=== PATIENT | female | born 1975 | race Caucasian/White ===

== ENCOUNTER 2018-12-26 14:02 | Emergency (ER) | payer BC, MEDICAID ==
[2018-12-26 14:54] LABS: BASO % 0.2 % (0-6); EOS % 1.4 % (0-6); HEMATOCRIT 43.8 % (35.0-47.0); HEMOGLOBIN 14.5 gm/dl (11.6-16.0); LYMPH % 24.2 % (16-45); MEAN CELL VOLUME 91.8 fl (81-97); MEAN CORPUSCULAR HEMOGLOBIN 30.4 pg (27-33); MEAN CORPUSCULAR HGB CONC 33.1 g/dl (32-36); MEAN PLATELET VOLUME 11.5 fl (7.4-10.4); MONO % 8.2 % (0-9); PLATELET COUNT 211 K/uL (130-400); RED BLOOD COUNT 4.77 M/uL (3.80-5.40); WHITE BLOOD COUNT W/O DIFF 9.5 K/uL (4.2-12.2)
[2018-12-26 15:03] LABS: BLOOD UREA NITROGEN 8 mg/dL (6-20); CREATININE 0.7 mg/dL (0.5-0.9); EST GLOMERULAR FILTRATION RATE > 60 mL/min
[2018-12-26 15:06] LABS: GLUCOSE,RANDOM 100 mg/dL (74-109)
[2018-12-26 15:09] LABS: INFLUENZA A NEGATIVE (NEGATIVE); INFLUENZA B NEGATIVE (NEGATIVE)
--- NOTE | 2018-12-26 15:16 | Emergency Department Record ---
History of Present Illness - General Chief Complaint: Cough Stated Complaint: ELPIDIO Time Seen by Provider: 12/26/18 14:20 Source: Patient Mode of Arrival: Ambulatory Limitations: No limitations - History of Present Illness Initial Comments: pt has been sick with bronchitis. she took a zpack and feels no better. she went to an urgent care where they told she has pneumonia and that she needs to go to the nearest emergency department. she has had fevers 101.7 yesterday and productive yellow cough. she has pain w inspiration Complaint: Cough, Fever, Nasal congestion, Rhinorrhea Onset/Timin -: Days(s) Consistency: Constant Worsens With: Deep breaths Associated Symptoms: Chills, Cough, Fever, Nasal congestion, Rhinorrhea, Shortness of breath - Related Data Home Medications Medication Instructions Recorded Confirmed Last Taken Adalimumab [Humira Pen] 400 mg IM ASDIR 12/26/18 12/26/18 Unknown Previous Rx's Medication Instructions Recorded Amoxicillin/Potassium Clav 1 each PO BID #14 tablet 12/26/18 [Augmentin 875Mg/125Mg] Allergies Allergy/AdvReac Type Severity Reaction Status Date / Time Sulfa (Sulfonamide Allergy ANAPHYLAXIS Verified 07/27/16 15:09 Antibiotics) Travel Screening - Travel/Exposure Within Last 30 Days Have you traveled within the last 30 days?: No Review of Systems Reviewed: No additional complaints except as noted below Constitutional: Reports: As per HPI. Denies: Chills, Fever, Malaise, Night sweats, Weakness, Weight change Eyes: Reports: As per HPI. Denies: Eye discharge, Eye pain, Photophobia, Vision change ENT: Reports: As per HPI. Denies: Congestion, Dental pain, Ear pain, Epistaxis , Hearing loss, Throat pain Respiratory: Reports: As per HPI. Denies: Cough, Dyspnea, Hemoptysis, Stridor, Wheezes Cardiovascular: Reports: As per HPI. Denies: Arrhythmia, Chest pain, Dyspnea on exertion, Edema, Murmurs, Orthopnea, Palpitations, Paroxysmal nocturnal dyspnea, Rheumatic Fever, Syncope Endocrine: Reports: As per HPI. Denies: Fatigue, Heat or cold intolerance, Polydipsia, Polyuria Gastrointestinal: Reports: As per HPI. Denies: Abdominal pain, Constipation, Diarrhea, Hematemesis, Hematochezia, Melena, Nausea, Vomiting Genitourinary: Reports: As per HPI. Denies: Abnormal menses, Discharge, Dyspareunia, Dysuria, Frequency, Hematuria, Incontinence, Retention, Urgency Musculoskeletal: Reports: As per HPI. Denies: Arthralgia, Back pain, Gout, Joint swelling, Myalgia, Neck pain Skin: Reports: As per HPI. Denies: Bruising, Change in color, Change in hair/ nails, Lesions, Pruritus, Rash Neurological: Reports: As per HPI. Denies: Abnormal gait, Confusion, Headache, Numbness, Paresthesias, Seizure, Tingling, Tremors, Vertigo, Weakness Psychiatric: Reports: As per HPI. Denies: Anxiety, Auditory hallucinations, Depression, Homicidal thoughts, Suicidal thoughts, Visual hallucinations Hematological/Lymphatic: Reports: As per HPI. Denies: Anemia, Blood Clots, Easy bleeding, Easy bruising, Swollen glands Past Medical History - SOCIAL HISTORY Smoking Status: Former smoker - RESPIRATORY Hx Respiratory Disorders: No - CARDIOVASCULAR Hx Cardio Disorders: No - NEURO Hx Neuro Disorders: Yes Hx Headaches: Yes Hx Neuropathy: Yes Comment:: trigeminal neuralgia - GI Hx GI Disorders: No - Hx Genitourinary Disorders: No - ENDOCRINE Hx Endocrine Disorders: Yes Hx Thyroid Disease: Yes - MUSCULOSKELETAL Hx Musculoskeletal Disorders: No - PSYCH Hx Psych Problems: Yes Hx Anxiety: Yes Hx Depression: Yes - HEMATOLOGY/ONCOLOGY Hx Hematology/Oncology Disorders: No Family Medical History Any Significant Family History?: No Physical Exam - General General Appearance: Alert, Oriented x3, Cooperative, Mild distress - Head Head exam: Normal inspection - Eye Eye exam: Normal appearance, PERRL, EOMI Pupils: Normal accommodation - ENT ENT exam: Normal exam, Mucous membranes moist, Normal external ear exam, Normal orophraynx Ear exam: Normal external inspection. negative: External canal tenderness Nasal Exam: Normal inspection. negative: Discharge, Sinus tenderness Mouth exam: Normal external inspection, Tongue normal Teeth exam: Normal inspection. negative: Dental caries Throat exam: Normal inspection. negative: Tonsillar erythema, Tonsillar exudate - Neck Neck exam: Normal inspection, Full ROM. negative: Tenderness - Respiratory Respiratory exam: Normal lung sounds bilaterally. negative: Respiratory distress - Cardiovascular Cardiovascular Exam: Regular rate, Normal rhythm, Normal heart sounds - GI/Abdominal GI/Abdominal exam: Soft, Normal bowel sounds. negative: Tenderness - Rectal Rectal exam: Deferred - exam: Deferred - Extremities Extremities exam: Normal inspection, Full ROM, Normal capillary refill. negative: Tenderness - Back Back exam: Reports: Normal inspection, Full ROM. Denies: Muscle spasm, Rash noted, Tenderness - Neurological Neurological exam: Alert, CN II-XII intact, Normal gait, Oriented X3 - Psychiatric Psychiatric exam: Normal affect, Normal mood - Skin Skin exam: Dry, Intact, Normal color, Warm Course Vital Signs 12/26/18 14:07 Temperature 97.2 F L Pulse Rate 95 H Respiratory 16 Rate Blood Pressure 122/87 Pulse Ox 100 - Reevaluation(s) Reevaluation #1: 12/26/18 16:03 cxr is neg. pt feels better Medical Decision Making - Lab Data Result diagrams: 12/26/18 14:40 12/26/18 14:40 Lab Results 12/26/18 12/26/18 Range/Units 14:40 14:40 WBC 9.5 (4.2-12.2) K/uL RBC 4.77 (3.80-5.40) M/uL Hgb 14.5 (11.6-16.0) gm/dl Hct 43.8 (35.0-47.0) % MCV 91.8 (81-97) fl MCH 30.4 (27-33) pg MCHC 33.1 (32-36) g/dl RDW 13.0 (11.5-14.5) % Plt Count 211 (130-400) K/uL MPV 11.5 H (7.4-10.4) fl Gran % 66.0 (47-80) % Lymphocytes % 24.2 (16-45) % Monocytes % 8.2 (0-9) % Eosinophils % 1.4 (0-6) % Basophils % 0.2 (0-6) % Sodium 139 (136-145) mmol/L Potassium 3.7 (3.4-4.5) mmol/L Chloride 106 (98-107) mmol/L Carbon Dioxide 21.0 L (22-29) mmol/L Anion Gap 12.0 (7-16) BUN 8 (6-20) mg/dL Creatinine 0.7 (0.5-0.9) mg/dL Estimated GFR > 60 mL/min Random Glucose 100 (74-109) mg/dL Calcium 9.4 (8.6-10.0) mg/dL Disposition Disposition: Discharge Clinical Impression: Bronchitis Disposition: Home, Self-Care Condition: (1) Good Instructions: Acute Bronchitis (ED) Additional Instructions: follow up with family doctor. return sooner if worse. push fluids Prescriptions: Amoxicillin/Potassium Clav [Augmentin 875Mg/125Mg] 1 each PO BID #14 tablet Forms: Patient Portal Access Quality - Quality Measures Quality Measures: N/A - Blood Pressure Screening Does Patient Have Any of the Following: No Blood Pressure Classification: Pre-Hypertensive BP Reading Systolic Measurement: 122 Diastolic Measurement: 87 Screening for High Blood Pressure: < Pre-Hypertensive BP, F/U Documented > [ G8950] Pre-Hypertensive Follow-up Interventions: Follow-up with rescreen every year.
[2018-12-26] MEDS: 0.9 % SODIUM CHLORIDE 1,000 ML BAG IV ONE (16:30)
--- NOTE | 2018-12-28 17:57 | RADIOLOGY REPORT ---
EXAM: CHEST 2 VIEWS HISTORY: PRODUCTIVE COUGH. TECHNIQUE: Two views of the chest. COMPARISON: Radiograph and rib series, 07/27/2016. FINDINGS: Cardiac silhouette within normal size and limits. No focal pulmonary consolidation. No pleural effusion or pneumothorax. Mild asymmetric elevation of the right hemidiaphragm, similar from prior. IMPRESSION: NO ACUTE LUNG FINDINGS. JOB NUMBER: [id number] MTDD
== END 2018-12-26 16:34 | disposition home or self-care (01) ==
LOC: ER 14:02
DX: J20.9 Acute bronchitis, unspecified (principal); R06.00 Dyspnea, unspecified; R07.1 Chest pain on breathing; Z87.891 Personal history of nicotine dependence
CPT/HCPCS: 71046; 80048; 85025; 85379; 87400; 99284; J7030

== ENCOUNTER 2019-05-14 19:35 | Emergency (ER) | payer BC ==
[2019-05-14] MEDS ORDERED: MAGNESIUM HYDROXIDE/AL HYDROX 30 ML, LIDOCAINE VISC 2% 15ML 15 ML PO ONE ×2 (19:46)
--- NOTE | 2019-05-14 19:48 | Emergency Department Record ---
History of Present Illness - General Chief Complaint: Abdominal Pain Stated Complaint: ABD PAIN Time Seen by Provider: 05/14/19 19:36 Source: Patient Mode of Arrival: Ambulatory Limitations: No limitations - History of Present Illness Initial Comments: 44 yo female presents to ED for evaluation of epigastric and LUQ pain symptoms that began approximately 3 days ago. Patient reports that she has been under a lot of stress, reports "I think I may have an ulcer". Patient reports that she took Pepcid x 1 today that did not improve her symptoms. Patient reports vomiting that began this afternoon. Patient denies fevers, chills, or urinary symptoms, denies any change in stools. Patient reports that he is s/p franklin, hysterectomy, and previously. MD Complaint: Abdominal pain Onset/Timin -: Days(s) Location: Epigastric Radiation: None Migration to: No migration Severity: Moderate Quality: Burning Consistency: Constant Improves With: Nothing Worsens With: Nothing Associated Symptoms: Denies other symptoms Treatments Prior to Arrival: Antacids - Related Data Home Medications Medication Instructions Recorded Confirmed Last Taken Ketorolac Tromethamine [Toradol] 30 mg IM DAILY PRN 05/14/19 05/14/19 Unknown Levothyroxine Sodium [Synthroid] 100 mcg PO DAILY 05/14/19 05/14/19 1 Day Ago ~05/13/19 Previous Rx's Medication Instructions Recorded Sucralfate [Carafate] 1 g PO QID #60 c 05/14/19 Allergies Allergy/AdvReac Type Severity Reaction Status Date / Time Sulfa (Sulfonamide Allergy ANAPHYLAXIS Verified 05/14/19 19:46 Antibiotics) Review of Systems Constitutional: Denies: Chills, Fever, Malaise, Night sweats Eyes: Denies: Eye discharge, Eye pain ENT: Denies: Congestion, Ear pain, Epistaxis Respiratory: Denies: Cough, Dyspnea Cardiovascular: Denies: Chest pain, Dyspnea on exertion Endocrine: Denies: Fatigue, Heat or cold intolerance Gastrointestinal: Reports: Abdominal pain, Nausea, Vomiting Genitourinary: Denies: Incontinence, Retention Musculoskeletal: Denies: Arthralgia, Back pain Skin: Denies: Bruising, Change in color Neurological: Denies: Abnormal gait, Confusion, Headache, Seizure Psychiatric: Denies: Anxiety Hematological/Lymphatic: Denies: Anemia, Blood Clots Past Medical History - SOCIAL HISTORY Smoking Status: Former smoker - RESPIRATORY Hx Respiratory Disorders: No - CARDIOVASCULAR Hx Cardio Disorders: No - NEURO Hx Neuro Disorders: Yes Hx Headaches: Yes Hx Neuropathy: Yes Comment:: trigeminal neuralgia - GI Hx GI Disorders: No - Hx Genitourinary Disorders: No - ENDOCRINE Hx Endocrine Disorders: Yes Hx Thyroid Disease: Yes - MUSCULOSKELETAL Hx Musculoskeletal Disorders: No - PSYCH Hx Psych Problems: Yes Hx Anxiety: Yes Hx Depression: Yes - HEMATOLOGY/ONCOLOGY Hx Hematology/Oncology Disorders: No Physical Exam - General General Appearance: Alert, Oriented x3, Cooperative, Mild distress Limitations: No limitations - Head Head exam: Atraumatic, Normocephalic, Normal inspection Head exam detail: negative: Abrasion, Contusion, Novak's sign, General tenderness, Hematoma, Laceration - Eye Eye exam: Normal appearance. negative: Conjunctival injection, Periorbital swelling, Periorbital tenderness, Scleral icterus - ENT Ear exam: negative: Auricular hematoma, Auricular trauma Nasal Exam: negative: Active bleeding, Discharge, Dried blood, Foreign body Mouth exam: negative: Drooling, Laceration, Muffled voice, Tongue elevation - Neck Neck exam: Normal inspection. negative: Tenderness - Respiratory Respiratory exam: Normal lung sounds bilaterally. negative: Rales, Respiratory distress, Rhonchi, Stridor - Cardiovascular Cardiovascular Exam: Regular rate, Normal rhythm, Normal heart sounds - GI/Abdominal GI/Abdominal exam: Soft, Tenderness (TTP epigastric, LUQ on examination, no rebound/fguarding symptoms are present on examination.). negative: Rebound, Rigid - Rectal Rectal exam: Deferred - exam: Deferred - Extremities Extremities exam: Normal inspection. negative: Calf tenderness, Pedal edema, Tenderness - Back Back exam: Denies: CVA tenderness (R), CVA tenderness (L) - Neurological Neurological exam: Alert, Normal gait, Oriented X3 - Psychiatric Psychiatric exam: Normal affect, Normal mood - Skin Skin exam: Normal color. negative: Abrasion Type of lesion: negative: abrasion Course - Reevaluation(s) Reevaluation #1: 05/14/19 20:30 Laboratory studies were reviewed and appear grossly unremarkable for an acute process. Patient was reassessed, reports improvement in her pain symptoms. Discussed performing CT imaging, unsure of benefit given the lack of symptoms for colitis/diverticulitis and normal laboratory studies. Will prescribe Carafate as needed in addition to the Pepcid that the patient is currently taking, will arrange for follow-up with Dr. Treviño for possible EGD as an outpatient. Patient is in agreement with the plan of care as discussed. Medical Decision Making - Lab Data Result diagrams: 05/14/19 19:57 05/14/19 19:57 Disposition Disposition: Discharge Clinical Impression: Epigastric pain, PUD (peptic ulcer disease) Disposition: Home, Self-Care Condition: (2) Stable Instructions: Gastritis (ED) Additional Instructions: Return to ED if your symptoms worsen or if you have any concerns. Carafate as directed. Follow-up with your family doctor in 3-5 days as directed. Follow-up with Dr. Treviño in the [facility], clinic will call to schedule you for an appointment. Prescriptions: Sucralfate [Carafate] 1 g PO QID #60 [facility] [place] Referrals: RAPHAEL TREVIÑO [DOCTOR OF OSTEOPATH] - [facility] [Provider Group] Forms: Patient Portal Access Time of Disposition: 20:38 Quality - Quality Measures Quality Measures: N/A - Blood Pressure Screening Does Patient Have Any of the Following: No Blood Pressure Classification: Hypertensive Reading Systolic Measurement: 125 Diastolic Measurement: 109 Screening for High Blood Pressure: < First Hypertensive BP, F/U Documented > [G8950] First Hypertensive Follow-up Interventions: Referral to alternative/primary care provider.
[2019-05-14 20:05] LABS: ABSOLUTE NEUTROPHIL COUNT 7.06; BASO % 0.3 % (0-6); EOS % 2.4 % (0-6); GRAN % 63.7 % (47-80); HEMATOCRIT 43.5 % (35.0-47.0); HEMOGLOBIN 14.3 gm/dl (11.6-16.0); LYMPH % 26.3 % (16-45); MEAN CELL VOLUME 92.2 fl (81-97); MEAN CORPUSCULAR HEMOGLOBIN 30.3 pg (27-33); MEAN CORPUSCULAR HGB CONC 32.9 g/dl (32-36); MEAN PLATELET VOLUME 11.5 fl (7.4-10.4); MONO % 7.3 % (0-9); PLATELET COUNT 206 K/uL (130-400); RED BLOOD COUNT 4.72 M/uL (3.80-5.40); RED CELL DISTRIBUTION WIDTH 13.7 % (11.5-14.5); URINE APPEARANCE SL CLOUDY; URINE BILIRUBIN NEGATIVE (NEGATIVE); URINE BLOOD NEGATIVE (NEGATIVE); URINE COLOR YELLOW; URINE GLUCOSE (UA) NEGATIVE (NEGATIVE); URINE KETONE NEGATIVE (NEGATIVE); URINE LEUKOCYTE ESTERASE NEGATIVE (NEGATIVE); URINE NITRITE NEGATIVE (NEGATIVE); URINE PROTEIN NEGATIVE (NEGATIVE); URINE UROBILINOGEN 0.2 E.U./dL (0.20 - 1.00); WHITE BLOOD COUNT W/O DIFF 11.1 K/uL (4.2-12.2)
[2019-05-14 20:09] LABS: HCG,QUALITATIVE URINE NEGATIVE (NEGATIVE)
[2019-05-14 20:13] LABS: BLOOD UREA NITROGEN 11 mg/dL (6-20)
[2019-05-14 20:14] LABS: CREATININE 0.8 mg/dL (0.5-0.9); EST GLOMERULAR FILTRATION RATE > 60 mL/min; LIPASE 30 U/L (13-60); TOTAL PROTEIN 7.6 g/dL (6.6-8.7)
[2019-05-14 20:16] LABS: GLUCOSE,RANDOM 88 mg/dL (74-109)
[2019-05-14 20:19] LABS: ALB/GLOB RATIO 1.5 (1.1-1.8); ALBUMIN 4.5 g/dL (4.0-5.0); ALKALINE PHOSPHATASE 47 U/L (35-104); ALT/SGPT 10 U/L (<33); AST/SGOT 15 U/L (10.0-35.0)
== END 2019-05-14 20:48 | disposition home or self-care (01) ==
LOC: ER 19:35
DX: K27.9 Peptic ulcer, site unspecified, unspecified as acute or chronic, without hemorrhage or perforation (principal); R10.13 Epigastric pain; Z87.891 Personal history of nicotine dependence
CPT/HCPCS: 80053; 81003; 81025; 83690; 85025; 99284

== ENCOUNTER 2019-06-28 13:29 | Day surgery (SDC) | payer BC ==
[2019-06-28] MEDS ORDERED: PROPOFOL 10 MG/ML VIAL IV ONE (13:30)
[2019-06-28] MEDS ORDERED: LIDOCAINE 2% MDV (20MG/ML) 20ML VIAL IV ONE (13:30)
--- NOTE | 2019-06-29 15:42 | Operative Note ---
OPERATION: ESOPHAGOGASTRODUODENOSCOPY with biopsy. PREOPERATIVE DIAGNOSIS: Dyspepsia. POSTOPERATIVE DIAGNOSIS: Nonerosive antral gastritis. PROCEDURE: After informed consent was obtained from the patient, she was placed in the left lateral decubitus position in the endoscopy suite, sedated and monitored by the department of anesthesia. A well-lubricated [id number] gastroscope was placed in the posterior oropharynx under direct visualization and passed to the proximal esophagus. The endoscope was advanced through the proximal, mid, and distal esophagus. The GE junction was unremarkable. The gastric body, antrum, pylorus, duodenal bulb and sweep were unremarkable other than some mild patchy antral erythema. No evidence of celiac was noted. No obstructing lesion was seen. J-turn views of the proximal stomach were unremarkable. The endoscope was then straightened. Random gastric biopsies obtained to rule out H pylori. The endoscope was removed from the patient with no new findings noted. RECOMMENDATIONS: I would suggest the patient continue on her PPI. I would suggest considering further imaging studies such as an ultrasound of the abdomen. She may benefit from the use of an antispasmodic to see if this provides her with some relief of her symptoms as well. As always, thank you for allowing me to participate in the healthcare of your patients. MOOKIE
== END 2019-06-28 14:45 | disposition home or self-care (01) ==
LOC: HOP 13:29
PROVIDERS: ATTEND Internal Medicine Gastroenterology
DX: R10.13 Epigastric pain (principal); K29.50 Unspecified chronic gastritis without bleeding; E03.9 Hypothyroidism, unspecified; G62.9 Polyneuropathy, unspecified